=== PATIENT | female | born 1960 | race Caucasian/White ===

== ENCOUNTER 2019-06-16 14:19 | Outpatient (CLI) | payer SELFPAY ==
--- NOTE | ~2019-06-16 | XR_ITS ---
EXAMINATION: XR chest 2V EXAM DATE: 06/16/2019 15:03 INDICATION: Fairly dense left lower lobe predominant infiltrate reported on outside examination which is not available, reportedly exam performed on 05/22/2019. A follow-up exam was requested. TECHNIQUE: Frontal and lateral projections of the chest obtained and reviewed. Comparison is made to prior examination from 04/17/2016. FINDINGS: The left lower lobe is nearly completely consolidated There is small left pleural effusion . Possible minimal right-sided airspace disease. No pneumothorax. Cardiomediastinal silhouette is no rmal. There is mild thoracic scoliosis. Compared to 2017, previously seen Chemo-Port has been removed. The consolidation is new. Prior abnorm al study from May is not available at this time for direct comparison. IMPRESSION: Nearly completely consolidated left lower lobe most likely infectious process, but under lying chronic process not excludable. Please clinically correlate, follow-up x-ray at minimum, CT if this finding persists. Reviewed, dictated and finalized at location B. IMPRESSION: Nearly completely consolidated left lower lobe most likely infecti ous process, but underlying chronic process not excludable. Please clinically c orrelate, follow-up x-ray at minimum, CT if this finding persists.
[2019-06-16 15:04] LABS: Basophils Percent Auto 0.5 % (0.2-1.2); Eosinophils Absolute Auto 0.2 K/mm3 (0-0.3); Eosinophils Percent Auto 2.8 % (0-4.4); Hematocrit 36.6 % (37.0-47.0); Hemoglobin 11.9 g/dL (12.0-15.0); Immature Granulocyte Absolute 0.02 K/mm3 (0.00-0.031); Immature Granulocyte Percent A 0.4 % (0-0.5); Lymphocytes Absolute Auto 1.04 K/mm3 (0.9-3.2); Lymphocytes Percent Auto 18.2 % (18.3-44.2); Mean Corpuscular HGB Conc 32.5 g/dl (32-36); Mean Corpuscular Volume 95.3 fl (80-100); Mean Platelet Volume 8.8 fl (7.4-10.4); Monocytes Absolute Auto 0.5 K/mm3 (0.1-0.6); Monocytes Percent Auto 7.9 % (2.6-8.5); Neutrophils Percent Auto 70.2 % (45.5-73.1); Platelet Count Result 296 k/mm3 (150-375); Red Blood Count 3.84 M/mm3 (4.2-5.4); Red Cell Distribution Width 13.6 % (11.5-14.5); White Blood Count 5.7 K/mm3 (4.5-10.0)
== END 2019-06-16 14:20 | disposition home or self-care (01) ==
PROVIDERS: PCP Physician Assistant; Visit Provider Physician Assistant
DX: J18.9 Pneumonia, unspecified organism (principal)
CPT/HCPCS: 36415; 71046; 85025

== ENCOUNTER 2019-06-30 14:05 | Outpatient (CLI) | payer SELFPAY ==
[2019-06-30 15:45] LABS: Basophils Percent Auto 0.5 % (0.2-1.2); Eosinophils Absolute Auto 0.1 K/mm3 (0-0.3); Eosinophils Percent Auto 1.3 % (0-4.4); Hematocrit 38.6 % (37.0-47.0); Hemoglobin 12.4 g/dL (12.0-15.0); Immature Granulocyte Absolute 0.02 K/mm3 (0.00-0.031); Immature Granulocyte Percent A 0.4 % (0-0.5); Lymphocytes Percent Auto 14.4 % (18.3-44.2); Mean Corpuscular HGB Conc 32.1 g/dl (32-36); Mean Corpuscular Hemoglobin 30.6 pg (26-34); Mean Corpuscular Volume 95.3 fl (80-100); Mean Platelet Volume 9.4 fl (7.4-10.4); Monocytes Absolute Auto 0.4 K/mm3 (0.1-0.6); Monocytes Percent Auto 7.6 % (2.6-8.5); Neutrophils Absolute Auto 4.2 K/mm3 (1.3-6.7); Neutrophils Percent Auto 75.8 % (45.5-73.1); Platelet Count Result 294 k/mm3 (150-375); Red Blood Count 4.05 M/mm3 (4.2-5.4); Red Cell Distribution Width 13.6 % (11.5-14.5); White Blood Count 5.6 K/mm3 (4.5-10.0)
[2019-06-30 16:01] LABS: Alanine Aminotransferase 13 U/L (4-35); Albumin Level 4.3 g/dL (3.5-5.1); Alkaline Phosphatase 118 U/L (38-126); Aspartate Amino Transferase 22 U/L (14-36); Bilirubin,Total 0.6 mg/dL (0.2-1.3); Blood Urea Nitrogen 9 mg/dL (7-17); Calcium 9.2 mg/dL (8.4-10.2); Carbon Dioxide 26 mmol/L (22-30); Chloride 102 mmol/L (98-107); Estimated Glomerular Filt Rate > 60; Glucose 102 mg/dL (65-105); Lactate Dehydrogenase 409 U/L (313-618); Sodium 136 mmol/L (137-145)
[2019-06-30 16:53] LABS: Iron 45 ug/dL (37-170)
[2019-06-30 17:03] LABS: Percent Iron Saturation 16 % (20-50)
[2019-06-30 17:07] LABS: Folic Acid 12.7 ng/mL (2.76->20); Vitamin B12 > 1000.0 pg/mL (239-931)
== END 2019-06-30 14:06 | disposition home or self-care (01) ==
PROVIDERS: PCP Physician Assistant; Visit Provider Internal Medicine Hematology & Oncology
DX: C83.39 Diffuse large B-cell lymphoma, extranodal and solid organ sites (principal); D64.81 Anemia due to antineoplastic chemotherapy; T45.1X5A Adverse effect of antineoplastic and immunosuppressive drugs, initial encounter; Z85.72 Personal history of non-Hodgkin lymphomas
CPT/HCPCS: 36415; 80053; 82607; 82746; 83540; 83550; 83615; 85025

== ENCOUNTER 2019-07-07 09:13 | Outpatient (CLI) | payer SELFPAY ==
--- NOTE | ~2019-07-07 | PE_ITS ---
EXAMINATION: PET skull to mid thigh DATE: 07/07/2019 12:46 INDICATION: B-cell lymphoma. TECHNIQUE: Blood glucose level was 94 mg/dL. 8.252 mCi of 18-fluorodeoxyglucose (18-FDG) was administ ered i.v. Low dose computed tomography (CT) images were acquired from the base of the brain to the pr oximal thighs for attenuation correction and anatomic localization. Automated exposure control was em ployed. Dose-length product (DLP) was 992 mGy-cm. Positron emission tomography (PET) images were acqu ired in the same distribution. COMPARISON: CT abdomen and pelvis 04/10/2018, chest 2 views 06/16/2019, chest CT 07/27/2017 FINDINGS: Head/neck: There is increased activity in the nasopharynx, oropharynx, and glottis without CT correla te, likely physiologic. There are no pathologically enlarged lymph nodes. Chest: There is a large left pleural effusion. There are airspace opacities involving the majority of left lung with volume loss and increased activity. There is mild atelectasis in right lung. The hear t size is normal. There is a small pericardial effusion. There are coronary artery calcifications. Pe ctus excavatum is noted. There is mild mediastinal lymphadenopathy with increased activity. For examp le, a 2.0 x 1.4 cm right paratracheal lymph node demonstrates maximum SUV of 3.2. Abdomen/pelvis/proximal thighs: The liver, spleen, gallbladder, pancreas, adrenal glands, and right k idney are normal. There is a 9 mm cyst in left kidney. There is a stent graft in abdominal aorta and the common iliac arteries. There is a stent in inferior mesenteric artery origin. There is a calcifie d fibroid in the uterus. There is diverticulosis of the colon without evidence of diverticulitis. The re are no pathologically enlarged lymph nodes. There is no free intraperitoneal fluid. There is a sb ign bone island in proximal left femur. There are chronic bilateral L5 pars defects. There is 9 mm an terolisthesis of L5 on S1. IMPRESSION: 1. Airspace opacities involving most of left lung with volume loss and increased activity, likely a c ombination of pneumonia and atelectasis. 2. Large left pleural effusion, worsened from 06/16/19. 3. Mild mediastinal lymphadenopathy with increased activity, likely reactive. 4. New small pericardial effusion. Reviewed, dictated and finalized at location A. IMPRESSION: 1. Airspace opacities involving most of left lung with volume loss and increase d activity, likely a combination of pneumonia and atelectasis. 2. Large left pleural effusion, worsened from 06/16/19. 3. Mild mediastinal lymphadenopathy with increased activity, likely reactive. 4. New small pericardial effusion.
[2019-07-07 09:41] LABS: Glucose Point of Care 94 (65-105)
== END 2019-07-07 09:14 | disposition home or self-care (01) ==
LOC: ANHIMG 09:21
PROVIDERS: PCP Physician Assistant; Visit Provider Internal Medicine Hematology & Oncology
DX: Z85.72 Personal history of non-Hodgkin lymphomas (principal); R91.8 Other nonspecific abnormal finding of lung field; J90 Pleural effusion, not elsewhere classified; I31.3 Pericardial effusion (noninflammatory)
CPT/HCPCS: 78815; A9552

== ENCOUNTER 2019-07-10 08:24 | Outpatient (CLI) | payer MEDICAID, SELFPAY ==
[2019-07-10] VITALS (7 sets, daily range): BP systolic 87–113; BP diastolic 52–67; PULSE 85–108; RESP 16–22; TEMP 36.5; O2SAT 90–97
--- NOTE | ~2019-07-10 | XR_ITS ---
XR chest 1V DATE: 07/10/2019 11:32 INDICATION: Post-ultrasound guided thoracentesis TECHNIQUE: AP upright chest COMPARISON: 06/15/2021 view chest FINDINGS: There is extensive consolidation in the left mid and particularly left lower lung zone. The re are air bronchograms in the left lower lobe. Left hilar mass or adenopathy is not excluded. There is no evidence of pneumothorax post thoracentesis. Scoliosis of the thoracic spine. Spina bifida occulta at T1. Osteopenia. IMPRESSION: No evidence of pneumothorax following ultrasound-guided thoracentesis Reviewed, dictated and finalized at location A. IMPRESSION: No evidence of pneumothorax following ultrasound-guided thoracentes is
--- NOTE | ~2019-07-10 | US_ITS ---
EXAMINATION: US thoracentesis DATE: 07/10/2019 11:34 INDICATION: Left pleural effusion TECHNIQUE: The procedure and its risks and benefits were discussed with the patient. Potential risks discussed included bleeding, infection, and pneumothorax. The patient understood the risks and agreed to proceed. The skin was prepped and draped in sterile fashion. 1% lidocaine was used for local anes thesia. Under ultrasound guidance, a 5 Fr catheter with trochar was advanced into the large left pleu ral effusion. Fluid was aspirated. The catheter was removed, and a dressing was applied. There were n o immediate complications. FINDINGS: Ultrasound images demonstrate a large left pleural effusion and the catheter within the fluid. IMPRESSION: 1. Successful ultrasound-guided thoracentesis yielding 1000 mL of dark reddish fluid. Reviewed, dictated and finalized at location A.
[2019-07-10 09:10] LABS: Mean Platelet Volume 8.7 fl (7.4-10.4); Platelet Count Result 282 k/mm3 (150-375)
[2019-07-10 09:19] LABS: INR 1.1; Prothrombin Time 13.9 Seconds (11.1-14.7)
--- NOTE | 2019-07-10 13:37 | SUR.PHASEII ---
[address] CERNA PER PHONE- UPDATE GIVEN. DR JEREZ TO DISCHARGE PT NOW.
[2019-07-13 01:06] LABS: LDH Pleural Fluid 385 U/L
== END 2019-07-10 08:25 | disposition home or self-care (01) ==
LOC: SURGERY 08:43 → ANHIMG 08:54
PROVIDERS: Radiology Diagnostic Radiology; PCP Physician Assistant; Visit Provider Internal Medicine Hematology & Oncology
DX: J90 Pleural effusion, not elsewhere classified (principal); C34.92 Malignant neoplasm of unspecified part of left bronchus or lung
CPT/HCPCS: 32555; 36415; 71045; 83615; 85049; 85610; 87205; 88104; 88108; 88305; 88313; 88342

== ENCOUNTER 2019-12-03 15:22 | Outpatient (CLI) | payer MEDICARE, OTHER, SELFPAY ==
[2019-12-03 16:32] LABS: Alanine Aminotransferase 75 U/L (4-35); Alkaline Phosphatase 108 U/L (38-126); Anion Gap 6 mmol/L (8-16); Aspartate Amino Transferase 55 U/L (14-36); Bilirubin,Total 0.8 mg/dL (0.2-1.3); Blood Urea Nitrogen 17 mg/dL (7-17); Calcium 9.2 mg/dL (8.4-10.2); Carbon Dioxide 29 mmol/L (22-30); Chloride 99 mmol/L (98-107); Estimated Glomerular Filt Rate > 60; Glucose 107 mg/dL (65-105); Sodium 134 mmol/L (137-145)
== END 2019-12-03 15:23 | disposition home or self-care (01) ==
LOC: ANHLAB 15:38
PROVIDERS: PCP Physician Assistant
DX: C34.92 Malignant neoplasm of unspecified part of left bronchus or lung (principal)
CPT/HCPCS: 36415; 80053

== ENCOUNTER 2020-03-23 16:56 | Outpatient (CLI) | payer MEDICARE, OTHER, SELFPAY ==
[2020-03-23 17:23] LABS: Basophils Absolute Auto 0.1 K/mm3 (0.0-0.1); Basophils Percent Auto 1.3 % (0.2-1.2); Eosinophils Absolute Auto 0.2 K/mm3 (0-0.3); Eosinophils Percent Auto 2.8 % (0-4.4); Hematocrit 32.7 % (37.0-47.0); Hemoglobin 10.3 g/dL (12.0-15.0); Immature Granulocyte Absolute 0.06 K/mm3 (0.00-0.031); Lymphocytes Absolute Auto 0.62 K/mm3 (0.9-3.2); Lymphocytes Percent Auto 10.2 % (18.3-44.2); Mean Corpuscular HGB Conc 31.5 g/dl (32-36); Mean Corpuscular Hemoglobin 30.6 pg (26-34); Mean Platelet Volume 8.8 fl (7.4-10.4); Monocytes Percent Auto 15.7 % (2.6-8.5); Neutrophils Absolute Auto 4.2 K/mm3 (1.3-6.7); Platelet Count Result 310 k/mm3 (150-375); Red Blood Count 3.37 M/mm3 (4.2-5.4); Red Cell Distribution Width 16.6 % (11.5-14.5); White Blood Count 6.1 K/mm3 (4.5-10.0)
[2020-03-23 17:35] LABS: Alanine Aminotransferase 20 U/L (4-35); Albumin Level 3.6 g/dL (3.5-5.1); Alkaline Phosphatase 129 U/L (38-126); Anion Gap 7 mmol/L (8-16); Aspartate Amino Transferase 27 U/L (14-36); Bilirubin,Total 0.8 mg/dL (0.2-1.3); Blood Urea Nitrogen 8 mg/dL (7-17); Calcium 8.5 mg/dL (8.4-10.2); Carbon Dioxide 27 mmol/L (22-30); Chloride 102 mmol/L (98-107); Estimated Glomerular Filt Rate > 60; Glucose 107 mg/dL (65-105); Potassium 3.7 mmol/L (3.4-5.0); Sodium 136 mmol/L (137-145)
== END 2020-03-23 16:57 | disposition home or self-care (01) ==
LOC: ANHLAB 16:59
PROVIDERS: PCP Physician Assistant; Visit Provider Physician Assistant
DX: L29.9 Pruritus, unspecified (principal)
CPT/HCPCS: 36415; 80053; 85025